=== PATIENT | male | born 1970 | race Caucasian/White ===

== ENCOUNTER → 2024-01-19 | Outpatient (CLI) | payer OTHER, SELFPAY ==
--- NOTE | 2024-01-19 08:01 | MRI_ITS ---
STUDY: MRI BRAIN WITH AND WITHOUT CONTRAST (ATTENTION INTERNAL AUDITORY CANALS - I.A.C.''s) REASON FOR EXAM: Male, 53 years old. ATAXIA, FAINTING TECHNIQUE: Standardized multiplanar fat and water weighted pulse sequences were obtained. 17ML IV CLARISCAN was administered for the contrast portion of the examination. COMPARISON: None. FINDINGS: Normal bilateral temporal bones. Normal bilateral internal auditory canals. There is no demonstrated intracanalicular or cisternal vestibular schwannoma (acoustic neuroma). There is no enhancement of the bilateral VIIth or VIIIth cranial nerves. Normal bilateral cochlea, vestibules and semicircular canals. Normal size of the ventricles and extra-axial spaces for the patient''s age. Normal white matter tracts of the supratentorial brain. There is no evidence for recent intracranial ischemia or other cause of cytotoxic edema on diffusion weighted imaging (DWI). Normal bilateral basal ganglia. Normal thalami. Normal flow voids within the major intracranial circulation suggesting patency by spin echo criteria. Normal venous enhancement. There is no enhancing intra-axial or extra-axial abnormality. There is no extra-axial fluid accumulation. Normal sella turcica, pituitary gland, infundibular stalk, optic chiasm and hypothalamus. Normal tectal plate and pineal gland. Normal midbrain, ancelmo and medulla. Normal cerebellum. Normal basal cisterns. No demonstrated orbital abnormality, within the constraints of a routine brain study. Normal visualized paranasal sinuses. Normal calvarium and skull base. Normal visualized soft tissue structures. Normal visualized upper cervical spine. MRI/Brain W/WO Contrast IMPRESSION: Normal unenhanced and enhanced MRI of the bilateral internal auditory canals (I.A.C''s). Electronically Signed: Stephen Martin MD at 9:27 EDT ,
[2024-01-19 08:27] LABS: CREATININE FINGERSTICK 1.3 mg/dL (0.70-1.30); EGFR FINGERSTICK > 60.0000 mL/min (>60)
--- NOTE | 2024-01-19 09:12 | CDU_ITS ---
Reason For Study: Ataxia Rt. Velocities/BP Lt. Velocities/BP Prox CCA 76.8/24.8 cm/sec. Prox CCA 82.8/22.3 cm/sec. Mid CCA 78.4/30 cm/sec. Mid CCA 67.4/25.6 cm/sec. Dist CCA 67.4/24.5 cm/sec. Dist CCA 56.4/17.9 cm/sec. Prox ICA 87.2/24.5 cm/sec. Prox ICA 43/14.2 cm/sec. Mid ICA 86.1/39.9 cm/sec. Mid ICA 70/32.5 cm/sec. Dist ICA 60.8/32.2 cm/sec. Dist ICA 79.6/41.9 cm/sec. Rt. ICA/CCA = 1.11. Lt. ICA/CCA = 1.18. Prox ECA 76.2/16.8 cm/sec. Prox ECA 69.6/15.7 cm/sec. Rt. Vert. 32.2/4.7 cm/sec. Lt. Vert. 72.1/27.7 cm/sec. Right Extracranial There is intimal thickening but no significant atherosclerotic plaque noted in the right common carotid artery. There is heterogeneous, irregular atherosclerotic plaque noted in the right internal carotid artery. There is intimal thickening but no significant atherosclerotic plaque noted in the right external carotid artery. Antegrade flow is noted in the right vertebral artery. Left Extracranial There is intimal thickening but no significant atherosclerotic plaque noted in the left common carotid artery. There is heterogeneous, irregular atherosclerotic plaque noted in the left internal carotid artery. There is intimal thickening but no significant atherosclerotic plaque noted in the left external carotid artery. Antegrade flow is noted in the left vertebral artery. Procedure This is a Carotid Duplex examination using B-mode, color flow and specral Doppler. Carotid Duplex [id number]. Exam performed in department. VL/Carotid Duplex Ultrasound Interpretation Summary Mild (<50%) stenosis right extracranial internal carotid. Mild (<50%) stenosis left extracranial internal carotid. Patent and antegrade vertebrals bilaterally. Ordering Physician: Jaison Chicas Referring Physician: Fam Harley Performed By: Wen Rg RVT
== END | disposition home or self-care (01) ==
PROVIDERS: PCP Family Medicine; Referring Provider Otolaryngology Otolaryngology/Facial Plastic Surgery; Visit Provider Otolaryngology Otolaryngology/Facial Plastic Surgery
DX: R27.0 Ataxia, unspecified (principal); R55 Syncope and collapse; I77.819 Aortic ectasia, unspecified site
CPT/HCPCS: 70553; 93880; A9575